=== PATIENT | male | born 1970 | race Native Hawaiian/Other Pacific Islander ===

== ENCOUNTER 2018-10-15 06:09 | Day surgery (SDC) | payer OTHER ==
[2018-10-15] MEDS ORDERED: ceFAZolin 2 GM/DEXTROSE 100 ML IV ONE (07:04)
[2018-10-15] MEDS ORDERED: LR 1,000 ML IV ONE (07:05)
[2018-10-15] MEDS ORDERED: MIDAZOLAM 2 MG/2 ML VIAL IVP ONE (07:39)
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
[2018-10-15] MEDS ORDERED: BUPIVACAINE 0.5% 30 ML SDV ONE (07:48)
[2018-10-15] MEDS ORDERED: MIDAZOLAM 2 MG/2 ML VIAL ONE (07:48)
[2018-10-15] MEDS ORDERED: PROPOFOL 200 MG/20 ML VIAL ONE ×2 (07:55→08:06)
[2018-10-15] MEDS ORDERED: fentaNYL 250 MCG/5 ML INJ ONE (07:55)
--- NOTE | 2018-10-15 07:56 | PDHPUP ---
History & Physical Update H&P update statement: This history and physical update is based on an assessment of the patient which was completed after admission or registration (within 24 hours), but prior to the surgery/procedure. H&P update: H&P reviewed & patient examined, no change in patient's condition since H&P completed
[2018-10-15] MEDS ORDERED: ROCURONIUM 50 MG/5 ML VIAL ONE (08:04)
[2018-10-15] MEDS ORDERED: ONDANSETRON 4 MG/2 ML VIAL ONE (08:38)
[2018-10-15] MEDS ORDERED: SUGAMMADEX SODIUM 200 MG/2 ML VIAL IVP ONE (08:38)
[2018-10-15] MEDS ORDERED: DEXAMETHASONE 4 MG/ML VIAL ONE (08:38)
[2018-10-15] MEDS ORDERED: fentaNYL 100 MCG/2 ML INJ ONE ×3 (09:00→09:52)
--- NOTE | 2018-10-15 09:36 | POSTOPPROG ---
Post Op Note Date of Operation: 10/15/18 Surgeon: Jacques Arias Operations Assistant: Benjamin Anesthesiologist: Warm Anesthesia: GET(General Endotracheal) Pre-op Diagnosis: RIH, recurrent LIH Post-op Diagnosis: same Indication: pain Procedure: Lap BIH repair with mesh Findings: Bilateral indirect inguinal hernias Inf/Abcess present in the surg proc area at time of surgery?: No Depth: Organ Space EBL: Minimal
[2018-10-15] MEDS ORDERED: KETOROLAC 30 MG/1 ML SDV ONE (09:44)
[2018-10-15] MEDS ORDERED: PROMETHAZINE HCL 25 MG/ML INJ IVP PRN (09:46)
[2018-10-15] MEDS ORDERED: NALOXONE HCL 0.4 MG/ML INJ IVP PRN (09:46)
[2018-10-15] MEDS ORDERED: ONDANSETRON 4 MG/2 ML VIAL IVP PRN (09:46)
--- NOTE | 2018-10-15 09:49 | POSTANESTH ---
Post Anesthetic Evaluation Cardiovascular Status: Normal, Stable Respiratory Status: Normal, Stable Level of Consciousness/Mental Status: Alert and Oriented Pain Control: Adequate, Prn Tx Ordered Nausea/Vomiting Control: Adequate, Prn Tx Ordered Complications Possibly Related to Anesthesia: None Noted
[2018-10-15] MEDS: fentaNYL 100 MCG/2 ML INJ IVP PRN ×2 (10:02→10:18)
--- NOTE | 2018-10-15 11:35 | GOP ---
DATE OF OPERATION: 10/15/2018 SURGEON: Jacques Arias MD MOVING CONSULTANT: Deb Alexander NP ANESTHESIOLOGIST: Bayron Galdamez MD PREOPERATIVE DIAGNOSIS: Bilateral inguinal hernias. POSTOPERATIVE DIAGNOSIS: Bilateral inguinal hernias. PROCEDURE PERFORMED: LAPAROSCOPIC BILATERAL INGUINAL HERNIA REPAIRS WITH MESH FINDINGS: The patient was found to have bilateral direct defects, no indirect sacs. He did have some scarring from his previous surgery making it difficult to mobilize the peritoneum on the right side. DESCRIPTION OF PROCEDURE: The patient was taken to the operating room where he received a satisfactory general endotracheal anesthesia by Dr. Galdamez. He was placed in supine position, prepped and draped in usual sterile fashion. An infraumbilical incision was made. Dissection was carried down the rectus sheath which was incised a subfascial tunnel was developed in the preperitoneal space, this was dissected free with a wound dissector which was replaced with CO2 insufflation trocar. Two other trocars were placed midline under direct vision. Raymon's ligament was exposed bilaterally. The cords were mobilized bilaterally. Multiple adhesions were taken down. The cords were skeletonized. There were no indirect sacs on either side. Bilateral Covidien polyester mesh patches were placed over the inguinal floor and secured to Raymon's ligament, to the lacunar ligament, to the anterior abdominal wall and the lateral abdominal wall outside the internal ring. Hemostasis was assured. Some areas in the peritoneum were closed with hemoclips. Pneumoperitoneum was released, trocars removed under direct vision. Trocar sites were closed with 0 Vicryl for the fascia, 4-0 Monocryl subcuticular stitch for the skin. All layers infiltrated with 0.5% Marcaine. Blood loss negligible. No complications. Taken to recovery room in good condition. /[id number]/MODL MTDD
[2018-10-15 12:24] VITALS: BP 112/75
== END 2018-10-15 12:30 | disposition home or self-care (01) ==
LOC: FSGY 06:09
PROVIDERS: ATTEND Surgery
PROC: 0YUA4JZ Supplement Bilateral Inguinal Region with Synthetic Substitute, Percutaneous Endoscopic Approach (ICD-10-PCS; principal; 2018-10-15 08:00)
DX: K40.21 Bilateral inguinal hernia, without obstruction or gangrene, recurrent (principal)
CPT/HCPCS: C1727; C1781; J0690; J1100; J1885; J2250; J2405; J2704; J3010

== ENCOUNTER 2019-02-16 15:23 | Emergency (ER) | payer OTHER ==
[2019-02-16 15:27] VITALS: BP 119/89
[2019-02-16] MEDS ORDERED: PROPARACAINE 0.5% 15 ML OPHT DROP OP ONE (16:07)
[2019-02-16] MEDS ORDERED: PROPARACAINE 0.5% 15 ML OPHT DROP ONE (16:08)
[2019-02-16] MEDS ORDERED: FLUORESCEIN SODIUM 1 MG STRIP OP ONE (16:10)
[2019-02-16] MEDS ORDERED: ERYTHROMYCIN 0.5% 1 GM OPHT.OINT EACHEYE ONE (16:20)
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
== END 2019-02-16 16:20 | disposition home or self-care (01) ==
DX: Z77.098 Contact with and (suspected) exposure to other hazardous, chiefly nonmedicinal, chemicals (principal)